=== PATIENT | male | born 1970 | race African-American/Black ===

== ENCOUNTER 2017-07-28 16:54 | Inpatient (IN) | payer OTHER ==
[2017-07-28] MEDS ORDERED: Amiodarone HCl 450 MG, Admixture Fee 1 EACH in Dextrose 5% in Water 250 ML IVPB SCH (17:30)
[2017-07-28] MEDS ORDERED: Magnesium 2 GM/NS 0.9% 100 ML 2 GM in Premix Bag 1 BAG IVPB ONE (17:30)
[2017-07-28 17:44] LABS: #Basophils 0.1 thou/uL (0.0-0.2); #Eosinphils 0.1 thou/uL (0.0-0.7); #Lymphocytes 2.1 thou/uL (1.20-3.40); #Monocytes 0.6 thou/uL (0.11-0.59); #Neutrophils 4.7 thou/uL (1.40-6.50); %Basophils 0.9 % (0.0-1.0); %Eosinophils 1.8 % (0.0-10.0); %Lymphocytes 27.3 % (21.0-51.0); %Monocytes 7.8 % (0.0-10.0); %Neutrophils 62.3 % (42.0-75.0); Hemoglobin 12.7 g/dL (14.0-18.0); Mean Corpuscular HGB CONC 31.2 g/dL (32.0-36.0); Mean Corpuscular Hemoglobin 26.7 pg (27.0-31.0); Mean Corpuscular Volume 85.7 fl (80.0-94.0); Mean Platelet Volume 7.2 fL (7.4-10.4); Platelet Count 262 thou/uL (130-400); RBC Distribution Width 14.5 % (11.5-14.5); Red Blood Cell (RBC) Count 4.75 mill/uL (4.70-6.10); White Blood Cell (WBC) Count 7.6 thou/uL (4.8-10.8)
[2017-07-28 17:50] LABS: INR-International Normal Ratio 1.1; Prothrombin Time 13.8 SEC (12.0-14.7)
[2017-07-28 17:51] LABS: PTT 32.2 SEC (22.9-36.1)
[2017-07-28 18:10] LABS: CKMB 2.5 ng/mL (0-6.6); Troponin I Less than 0.010 ng/mL (< 0.028)
[2017-07-28] MEDS ORDERED: Acetaminophen 325 MG TAB PO PRN ×2 (19:50→20:08)
[2017-07-28] MEDS ORDERED: Bisacodyl 5 MG TAB PO PRN (20:08)
[2017-07-28] MEDS ORDERED: Ondansetron HCl/PF 4 MG/2 ML Vial IVP PRN (20:08)
[2017-07-28] MEDS ORDERED: Acetaminophen 650 MG Suppository PR PRN (20:08)
[2017-07-28] MEDS ORDERED: Ondansetron ODT 4 MG TAB PO PRN (20:08)
[2017-07-28 20:56] LABS: Troponin I 0.017 ng/mL (< 0.028)
[2017-07-28] MEDS: Docusate 100 MG CAP PO SCH (21:36)
[2017-07-28] MEDS: Carvedilol 6.25 MG TAB PO SCH (21:36)
[2017-07-28] MEDS: Famotidine 20 MG TAB PO SCH (21:37)
[2017-07-28] MEDS: Atorvastatin Calcium 20 MG TAB PO SCH (21:37)
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
[2017-07-28 23:59] LABS: Troponin I 0.015 ng/mL (< 0.028)
[2017-07-29 05:00] LABS: #Eosinphils 0.1 thou/uL (0.0-0.7); #Lymphocytes 1.6 thou/uL (1.20-3.40); #Monocytes 0.4 thou/uL (0.11-0.59); #Neutrophils 3.9 thou/uL (1.40-6.50); %Basophils 0.1 % (0.0-1.0); %Eosinophils 1.7 % (0.0-10.0); %Lymphocytes 27.2 % (21.0-51.0); %Monocytes 6.4 % (0.0-10.0); %Neutrophils 64.6 % (42.0-75.0); Hemoglobin 11.8 g/dL (14.0-18.0); Mean Corpuscular HGB CONC 31.1 g/dL (32.0-36.0); Mean Corpuscular Hemoglobin 26.4 pg (27.0-31.0); Mean Corpuscular Volume 84.8 fl (80.0-94.0); Mean Platelet Volume 7.6 fL (7.4-10.4); Platelet Count 232 thou/uL (130-400); RBC Distribution Width 14.3 % (11.5-14.5); Red Blood Cell (RBC) Count 4.47 mill/uL (4.70-6.10)
[2017-07-29 05:10] LABS: Anion Gap 12 mmol/L (10-20); BUN (Urea Nitrogen) 11 mg/dL (8.9-20.6); Calc. Creatinine Clearance 157 mL/min (70-130); Calcium 8.6 mg/dL (7.8-10.44); Carbon Dioxide 21 mmol/L (22-29); Chloride 107 mmol/L (98-107); Estimated GFR-MDRD Greater than 90; Glucose 107 mg/dL (70-105); Potassium 3.9 mmol/L (3.5-5.1); Sodium 136 mmol/L (136-145)
[2017-07-29] MEDS: Amiodarone HCl 450 MG, Admixture Fee 1 EACH in Dextrose 5% in Water 250 ML IVPB SCH (05:50)
[2017-07-29] MEDS ORDERED: FLU VACC QS2017-18 36 mo. & older 0.5 ML SYRINGE IM ONE (09:00)
[2017-07-29 09:18] VITALS: BMI 36.5
[2017-07-29] MEDS: Enoxaparin Sodium 40 MG/0.4 ML SYRINGE SC SCH (09:33)
[2017-07-29] MEDS: Losartan 25 MG TAB PO SCH (09:34)
[2017-07-29] MEDS: Famotidine 20 MG TAB PO SCH ×2 (09:34→22:27)
[2017-07-29] MEDS: Docusate 100 MG CAP PO SCH ×2 (09:34→22:28)
[2017-07-29] MEDS: Carvedilol 6.25 MG TAB PO SCH ×2 (09:35→22:28)
[2017-07-29] MEDS: Amlodipine 5 MG TAB PO SCH (09:35)
--- NOTE | 2017-07-29 10:15 | PDOC.PN ---
- Subjective Encounter Start Date: 07/29/17 Encounter Start Time: 11:40 Subjective: Patient with no symptoms overnight. No more fluttering. No -: syncope. No dizzy or nausea. - Objective Resuscitation Status: Resuscitation Status FULL:Full Resuscitation MAR Reviewed: Yes Vital Signs & Weight: Vital Signs (12 hours) Temp Pulse Resp BP Pulse Ox 07/29/17 09:30 97.9 F 78 16 120/77 98 07/29/17 04:27 98.4 F 69 16 123/76 97 07/28/17 23:23 97.9 F 80 19 119/61 98 Weight Admit Weight 277 lb 6.4 oz Weight 277 lb 1.6 oz I&O: 07/28/17 07/29/17 07/30/17 06:59 06:59 06:59 Intake Total 1780 Output Total 925 Balance 855 Result Diagrams: 07/29/17 04:40 07/29/17 04:40 Phys Exam - Physical Examination Constitutional: NAD HEENT: moist MMs Neck: no JVD Respiratory: no wheezing, no rales, no rhonchi, clear to auscultation bilateral Cardiovascular: RRR, no significant murmur Gastrointestinal: soft, positive bowel sounds Musculoskeletal: no edema Neurological: non-focal, moves all 4 limbs Psychiatric: normal affect, A&O x 3 Dx/Plan (1) Paroxysmal ventricular tachycardia Code(s): I47.2 - VENTRICULAR TACHYCARDIA Status: Acute Comment: Resolved with amiodarone, Dr. Basurto following (2) Myocardiopathy Code(s): I42.9 - CARDIOMYOPATHY, UNSPECIFIED Status: Chronic Qualifiers: Cardiomyopathy type: unspecified Qualified Code(s): I42.9 - Cardiomyopathy , unspecified Comment: ECHO pending, BNP normal (3) Hypertension Code(s): I10 - ESSENTIAL (PRIMARY) HYPERTENSION Status: Chronic Qualifiers: Hypertension type: essential hypertension Qualified Code(s): I10 - Essential (primary) hypertension Comment: Resume home meds (4) Hyperlipidemia Code(s): E78.5 - HYPERLIPIDEMIA, UNSPECIFIED Status: Chronic Comment: Resume home med - Plan cont current plan of care, out of bed/ambulate, DVT proph w/lovenox, DVT proph w /SCDs * . - Discharge Day Encounter end time: 11:50
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
[2017-07-29] MEDS: Atorvastatin Calcium 20 MG TAB PO SCH (22:27)
[2017-07-30] MEDS: Enoxaparin Sodium 40 MG/0.4 ML SYRINGE SC SCH (09:29)
[2017-07-30] MEDS: Docusate 100 MG CAP PO SCH ×2 (09:29→20:33)
[2017-07-30] MEDS: Losartan 25 MG TAB PO SCH (09:29)
[2017-07-30] MEDS: Amlodipine 5 MG TAB PO SCH (09:30)
[2017-07-30] MEDS: Famotidine 20 MG TAB PO SCH ×2 (09:30→20:33)
[2017-07-30] MEDS: Carvedilol 6.25 MG TAB PO SCH ×2 (09:30→20:33)
--- NOTE | 2017-07-30 11:29 | PDOC.PN ---
- Subjective Encounter Start Date: 07/30/17 Encounter Start Time: 08:40 Pt seen for followup re: ventricular tachycardia. Denies chest pain, shortness of breath, fevers or chills. - Objective Resuscitation Status: Resuscitation Status FULL:Full Resuscitation Vital Signs & Weight: Vital Signs (12 hours) Temp Pulse Resp BP Pulse Ox 07/30/17 09:30 67 07/30/17 09:25 98.1 F 69 16 129/78 97 07/30/17 05:44 98.5 F 67 14 108/50 L 96 07/30/17 04:30 96 07/30/17 00:00 98.2 F 63 12 108/64 96 Weight Admit Weight 277 lb 6.4 oz Weight 275 lb 8 oz I&O: 07/29/17 07/30/17 07/31/17 06:59 06:59 06:59 Intake Total 1780 1535 Output Total 925 500 Balance 855 1035 Result Diagrams: 07/29/17 04:40 07/29/17 04:40 EKG Reviewed by me: Yes (Tele: NSR) Phys Exam - Physical Examination Obese HEENT: PERRLA, moist MMs, sclera anicteric, oral pharynx no lesions Neck: no nodes, no JVD, supple, full ROM Respiratory: no wheezing, no rales, no rhonchi, clear to auscultation bilateral Cardiovascular: RRR, no rub Gastrointestinal: soft, non-tender, positive bowel sounds Neurological: moves all 4 limbs Psychiatric: normal affect, A&O x 3 Dx/Plan (1) NSVT (nonsustained ventricular tachycardia) Code(s): I47.2 - VENTRICULAR TACHYCARDIA Status: Acute Comment: Cardiology following, awaiting EP consult (2) Hyperlipidemia Code(s): E78.5 - HYPERLIPIDEMIA, UNSPECIFIED Status: Chronic Comment: continue statin (3) Hypertension Code(s): I10 - ESSENTIAL (PRIMARY) HYPERTENSION Status: Chronic Qualifiers: Hypertension type: essential hypertension Qualified Code(s): I10 - Essential (primary) hypertension Comment: Monitor vital signs, titrate antihypertensives as needed (4) Myocardiopathy Code(s): I42.9 - CARDIOMYOPATHY, UNSPECIFIED Status: Chronic Qualifiers: Cardiomyopathy type: unspecified Qualified Code(s): I42.9 - Cardiomyopathy , unspecified Comment: continue losartan, carvedilol - Plan * . Review of Systems - Review of Systems Constitutional: negative: fever, chills, sweats, weakness, malaise Respiratory: negative: Cough, Dry, Shortness of Breath, Hemoptysis, SOB with Excertion, Pleuritic Pain, Sputum, Wheezing Cardiovascular: negative: chest pain, palpitations, orthopnea, paroxysmal nocturnal dyspnea, edema, light headedness Gastrointestinal: negative: Nausea, Vomiting, Abdominal Pain, Diarrhea, Constipation, Melena, Hematochezia Genitourinary: negative: Dysuria, Frequency, Incontinence, Hematuria, Retention - Medications/Allergies Allergies/Adverse Reactions: Allergies Allergy/AdvReac Type Severity Reaction Status Date / Time No Known Drug Allergies Allergy Verified 07/28/17 21:49 Medications: Current Medications Acetaminophen (Tylenol) 650 mg PO Q4H PRN PRN Reason: Headache/Fever or Pain Acetaminophen (Tylenol) 650 mg MI Q4H PRN PRN Reason: Headache/Fever or Pain Amlodipine Besylate (Norvasc) 5 mg PO DAILY [facility] Last Admin: 07/30/17 09:30 Dose: 5 mg Aspirin (Aspirin Chewable) 81 mg PO DAILY [facility] Last Admin: 07/30/17 09:30 Dose: 81 mg Atorvastatin Calcium (Lipitor) 20 mg PO HS [facility] Last Admin: 07/29/17 22:27 Dose: 20 mg Bisacodyl (Dulcolax) 10 mg PO DAILYPRN PRN PRN Reason: Constipation Carvedilol (Coreg) 6.25 mg PO BID [facility] Last Admin: 07/30/17 09:30 Dose: 6.25 mg Docusate Sodium (Colace) 100 mg PO BID [facility] Last Admin: 07/30/17 09:29 Dose: 100 mg Enoxaparin Sodium (Lovenox) 40 mg SC 0900 [facility] Last Admin: 07/30/17 09:29 Dose: 40 mg Famotidine (Pepcid) 20 mg PO BID [facility] Last Admin: 07/30/17 09:30 Dose: 20 mg Amiodarone HCl 450 mg/Miscellaneous Medication 1 each/ Dextrose/Water 259 mls @ 0 mls/hr IVPB INF [facility]; As Directed PRN Reason: Protocol Last Admin: 07/29/17 05:50 Dose: 259 mls Losartan Potassium (Cozaar) 100 mg PO DAILY [facility] Last Admin: 07/30/17 09:29 Dose: 100 mg Ondansetron HCl (Zofran Odt) 4 mg PO Q6H PRN PRN Reason: Nausea/Vomiting Ondansetron HCl (Zofran) 4 mg IVP Q6H PRN PRN Reason: Nausea/Vomiting
[2017-07-30] MEDS: Amiodarone HCl 450 MG, Admixture Fee 1 EACH in Dextrose 5% in Water 250 ML IVPB SCH (14:35)
[2017-07-30] MEDS: Atorvastatin Calcium 20 MG TAB PO SCH (20:33)
[2017-07-31] MEDS: Carvedilol 6.25 MG TAB PO SCH ×2 (12:03→20:39)
[2017-07-31] MEDS: Amlodipine 5 MG TAB PO SCH (12:04)
[2017-07-31] MEDS: Famotidine 20 MG TAB PO SCH ×2 (12:04→20:39)
[2017-07-31] MEDS: Enoxaparin Sodium 40 MG/0.4 ML SYRINGE SC SCH (12:05)
[2017-07-31] MEDS: Docusate 100 MG CAP PO SCH ×2 (12:05→20:39)
[2017-07-31] MEDS: Losartan 25 MG TAB PO SCH (12:05)
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
--- NOTE | 2017-07-31 13:34 | PDOC.PN ---
- Subjective Encounter Start Date: 07/31/17 Encounter Start Time: 12:20 Pt seen for followup re: NSVT. Denies any chest pain or shortness of breath. - Objective Resuscitation Status: Resuscitation Status FULL:Full Resuscitation MAR Reviewed: Yes Vital Signs & Weight: Vital Signs (12 hours) Temp Pulse Pulse Pulse Resp BP BP 07/31/17 12:04 68 07/31/17 12:03 153/89 H 07/31/17 11:03 64 64 149/76 H 07/31/17 08:00 97.9 F 68 18 07/31/17 05:02 98.4 F 69 14 BP BP Pulse Ox Pulse Ox Pulse Ox 07/31/17 12:04 07/31/17 12:03 07/31/17 11:03 125/78 100 96 07/31/17 08:00 153/89 H 94 L 07/31/17 05:02 95/51 L 96 Weight Admit Weight 277 lb 6.4 oz Weight 276 lb 6.4 oz I&O: 07/30/17 07/31/17 08/01/17 06:59 06:59 06:59 Intake Total 1535 918 Output Total 500 2750 Balance 1035 -1832 Result Diagrams: 07/29/17 04:40 07/29/17 04:40 EKG Reviewed by me: Yes (Tele: NSR) Phys Exam - Physical Examination Obese HEENT: PERRLA, moist MMs, sclera anicteric, oral pharynx no lesions Neck: no nodes, no JVD, supple, full ROM Respiratory: no wheezing, no rales, no rhonchi, clear to auscultation bilateral Cardiovascular: RRR, no rub Gastrointestinal: soft Neurological: moves all 4 limbs Psychiatric: normal affect, A&O x 3 Dx/Plan (1) NSVT (nonsustained ventricular tachycardia) Code(s): I47.2 - VENTRICULAR TACHYCARDIA Status: Acute Comment: ? due to stimulants in HydroxyCut; Coreg dose increased (2) Hyperlipidemia Code(s): E78.5 - HYPERLIPIDEMIA, UNSPECIFIED Status: Chronic Comment: continue statin (3) Hypertension Code(s): I10 - ESSENTIAL (PRIMARY) HYPERTENSION Status: Chronic Qualifiers: Hypertension type: essential hypertension Qualified Code(s): I10 - Essential (primary) hypertension Comment: Monitor vital signs (4) Myocardiopathy Code(s): I42.9 - CARDIOMYOPATHY, UNSPECIFIED Status: Chronic Qualifiers: Cardiomyopathy type: unspecified Qualified Code(s): I42.9 - Cardiomyopathy , unspecified Comment: continue losartan, carvedilol - Plan DVT proph w/lovenox * . Review of Systems - Review of Systems Respiratory: negative: Cough, Dry, Shortness of Breath, Hemoptysis, SOB with Excertion, Pleuritic Pain, Sputum, Wheezing Cardiovascular: negative: chest pain, palpitations, orthopnea, paroxysmal nocturnal dyspnea, edema, light headedness - Medications/Allergies Allergies/Adverse Reactions: Allergies Allergy/AdvReac Type Severity Reaction Status Date / Time No Known Drug Allergies Allergy Verified 07/28/17 21:49 Medications: Current Medications Acetaminophen (Tylenol) 650 mg PO Q4H PRN PRN Reason: Headache/Fever or Pain Acetaminophen (Tylenol) 650 mg [place] Q4H PRN PRN Reason: Headache/Fever or Pain Amlodipine Besylate (Norvasc) 5 mg PO DAILY [facility] Last Admin: 07/31/17 12:04 Dose: 5 mg Aspirin (Aspirin Chewable) 81 mg PO DAILY [facility] Last Admin: 07/31/17 12:04 Dose: 81 mg Atorvastatin Calcium (Lipitor) 20 mg PO HS [facility] Last Admin: 07/30/17 20:33 Dose: 20 mg Bisacodyl (Dulcolax) 10 mg PO DAILYPRN PRN PRN Reason: Constipation Carvedilol (Coreg) 6.25 mg PO BID [facility] Last Admin: 07/31/17 12:03 Dose: 6.25 mg Docusate Sodium (Colace) 100 mg PO BID [facility] Last Admin: 07/31/17 12:05 Dose: 100 mg Enoxaparin Sodium (Lovenox) 40 mg SC 0900 [facility] Last Admin: 07/31/17 12:05 Dose: 40 mg Famotidine (Pepcid) 20 mg PO BID [facility] Last Admin: 07/31/17 12:04 Dose: 20 mg Losartan Potassium (Cozaar) 100 mg PO DAILY [facility] Last Admin: 07/31/17 12:05 Dose: 100 mg Ondansetron HCl (Zofran Odt) 4 mg PO Q6H PRN PRN Reason: Nausea/Vomiting Ondansetron HCl (Zofran) 4 mg IVP Q6H PRN PRN Reason: Nausea/Vomiting
[2017-07-31] MEDS: Atorvastatin Calcium 20 MG TAB PO SCH (20:38)
[2017-08-01] MEDS: Losartan 25 MG TAB PO SCH (09:15)
[2017-08-01] MEDS: Famotidine 20 MG TAB PO SCH ×2 (09:15→20:27)
[2017-08-01] MEDS: Docusate 100 MG CAP PO SCH ×2 (09:16→20:28)
[2017-08-01] MEDS: Amlodipine 5 MG TAB PO SCH (09:16)
[2017-08-01] MEDS: Enoxaparin Sodium 40 MG/0.4 ML SYRINGE SC SCH (09:16)
[2017-08-01] MEDS: Carvedilol 6.25 MG TAB PO SCH ×3 (09:16→20:28)
--- NOTE | 2017-08-01 16:03 | PDOC.CTH ---
Cardiology Progress Note - Subjective EP progress note: Patient has done well overnight. No new cardiac complaints. Continues to have minor dizziness. No heart racing, syncope, or chest pain. - Objective Vital Signs Temp Pulse Pulse Pulse Resp BP BP 08/01/17 14:22 136/68 08/01/17 11:26 98.4 F 16 08/01/17 10:07 67 82 154/83 H 08/01/17 09:16 61 136/68 08/01/17 07:52 98.2 F 61 16 BP BP Pulse Ox Pulse Ox Pulse Ox 08/01/17 14:22 08/01/17 11:26 133/80 99 08/01/17 10:07 150/84 H 97 100 08/01/17 09:16 08/01/17 07:52 153/86 H 100 Admit Weight 277 lb 6.4 oz Weight 264 lb 12.8 oz 07/31/17 08/01/17 08/02/17 06:59 06:59 06:59 Intake Total 918 240 Output Total 2750 Balance -1832 240 - Physical Examination General/Neuro: alert & oriented x3, NAD Neck: carotid US brisk, no JVD present Lungs: CTA, unlabored respirations Heart: PMI normal, RRR Abdomen: no HSM, NT/ND - Telemetry Telemetry Rhythm: NSR - Labs Result Diagrams: 07/29/17 04:40 07/29/17 04:40 Troponin/CKMB CK-MB (CK-2) 2.5 ng/mL (0-6.6) 07/28/17 17:32 Troponin I 0.015 ng/mL (< 0.028) 07/28/17 23:29 - Assessment/Plan 1. NSVT- 8 beat run captured in ER. DC'd amiodarone yesterday. No recurrence. Will receive monitor as outpatient and follow up in clinic. Continue with beta malissa therapy, optimize Coreg as tolerated. 2. Cardiomyopathy- likely non ischemic per patient report. Recovered EF >40%. Per cardiology
--- NOTE | 2017-08-01 18:15 | PDOC.PN ---
- Subjective Encounter Start Date: 08/01/17 Encounter Start Time: 08:00 Pt seen for followup re: NSVT. Denies chest pain or dyspnea. - Objective Resuscitation Status: Resuscitation Status FULL:Full Resuscitation MAR Reviewed: Yes Vital Signs & Weight: Vital Signs (12 hours) Temp Pulse Pulse Pulse Resp BP BP 08/01/17 16:16 98.3 F 83 16 08/01/17 14:22 136/68 08/01/17 11:26 98.4 F 16 08/01/17 10:07 67 82 154/83 H 08/01/17 09:16 61 136/68 08/01/17 07:52 98.2 F 61 16 BP BP Pulse Ox Pulse Ox Pulse Ox 08/01/17 16:16 126/73 08/01/17 14:22 08/01/17 11:26 133/80 99 08/01/17 10:07 150/84 H 97 100 08/01/17 09:16 08/01/17 07:52 153/86 H 100 Weight Admit Weight 277 lb 6.4 oz Weight 264 lb 12.8 oz I&O: 07/31/17 08/01/17 08/02/17 06:59 06:59 06:59 Intake Total 918 840 Output Total 2750 Balance -1832 840 Result Diagrams: 07/29/17 04:40 07/29/17 04:40 EKG Reviewed by me: Yes (Tele: NSR) Phys Exam - Physical Examination Obese HEENT: PERRLA, moist MMs, sclera anicteric, oral pharynx no lesions Neck: no nodes, no JVD, supple, full ROM Respiratory: no wheezing, no rales, no rhonchi, clear to auscultation bilateral Cardiovascular: RRR, no rub Gastrointestinal: soft Neurological: moves all 4 limbs Psychiatric: normal affect, A&O x 3 Dx/Plan (1) NSVT (nonsustained ventricular tachycardia) Code(s): I47.2 - VENTRICULAR TACHYCARDIA Status: Acute Comment: ? due to stimulants in HydroxyCut; Coreg dose increased (2) Hyperlipidemia Code(s): E78.5 - HYPERLIPIDEMIA, UNSPECIFIED Status: Chronic Comment: continue statin (3) Hypertension Code(s): I10 - ESSENTIAL (PRIMARY) HYPERTENSION Status: Chronic Qualifiers: Hypertension type: essential hypertension Qualified Code(s): I10 - Essential (primary) hypertension Comment: Monitor vital signs (4) Myocardiopathy Code(s): I42.9 - CARDIOMYOPATHY, UNSPECIFIED Status: Chronic Qualifiers: Cardiomyopathy type: unspecified Qualified Code(s): I42.9 - Cardiomyopathy , unspecified Comment: continue losartan, carvedilol - Plan out of bed/ambulate * . Review of Systems - Review of Systems Constitutional: negative: fever, chills, sweats, weakness, malaise Respiratory: negative: Cough, Dry, Shortness of Breath, Hemoptysis, SOB with Excertion, Pleuritic Pain, Sputum, Wheezing Cardiovascular: negative: chest pain, palpitations, orthopnea, paroxysmal nocturnal dyspnea, edema, light headedness Gastrointestinal: negative: Nausea, Vomiting, Abdominal Pain, Diarrhea, Constipation, Melena, Hematochezia Genitourinary: negative: Dysuria, Frequency, Incontinence, Hematuria, Retention - Medications/Allergies Allergies/Adverse Reactions: Allergies Allergy/AdvReac Type Severity Reaction Status Date / Time No Known Drug Allergies Allergy Verified 07/28/17 21:49 Medications: Current Medications Acetaminophen (Tylenol) 650 mg PO Q4H PRN PRN Reason: Headache/Fever or Pain Last Admin: 08/01/17 16:19 Dose: 650 mg Acetaminophen (Tylenol) 650 mg [place] Q4H PRN PRN Reason: Headache/Fever or Pain Amlodipine Besylate (Norvasc) 5 mg PO DAILY [facility] Last Admin: 08/01/17 09:16 Dose: 5 mg Aspirin (Aspirin Chewable) 81 mg PO DAILY [facility] Last Admin: 08/01/17 09:16 Dose: 81 mg Atorvastatin Calcium (Lipitor) 20 mg PO HS [facility] Last Admin: 07/31/17 20:38 Dose: 20 mg Bisacodyl (Dulcolax) 10 mg PO DAILYPRN PRN PRN Reason: Constipation Carvedilol (Coreg) 6.25 mg PO TID [facility] Last Admin: 08/01/17 14:22 Dose: 6.25 mg Docusate Sodium (Colace) 100 mg PO BID [facility] Last Admin: 08/01/17 09:16 Dose: 100 mg Enoxaparin Sodium (Lovenox) 40 mg SC 0900 [facility] Last Admin: 08/01/17 09:16 Dose: 40 mg Famotidine (Pepcid) 20 mg PO BID [facility] Last Admin: 08/01/17 09:15 Dose: 20 mg Losartan Potassium (Cozaar) 100 mg PO DAILY [facility] Last Admin: 08/01/17 09:15 Dose: 100 mg Ondansetron HCl (Zofran Odt) 4 mg PO Q6H PRN PRN Reason: Nausea/Vomiting Ondansetron HCl (Zofran) 4 mg IVP Q6H PRN PRN Reason: Nausea/Vomiting
[2017-08-01] MEDS: Atorvastatin Calcium 20 MG TAB PO SCH (20:28)
[2017-08-02] MEDS: Carvedilol 6.25 MG TAB PO SCH ×2 (08:44→14:42)
[2017-08-02] MEDS: Enoxaparin Sodium 40 MG/0.4 ML SYRINGE SC SCH (08:44)
[2017-08-02] MEDS: Docusate 100 MG CAP PO SCH (08:44)
[2017-08-02] MEDS: Famotidine 20 MG TAB PO SCH (08:44)
[2017-08-02] MEDS: Amlodipine 5 MG TAB PO SCH (08:45)
[2017-08-02] MEDS: Losartan 25 MG TAB PO SCH (08:45)
[2017-08-02 11:52] VITALS: TEMP 98.7
--- NOTE | 2017-08-02 12:58 | DIS ---
DATE OF ADMISSION: 07/28/2017 DATE OF DISCHARGE: 08/02/2017 PRIMARY CARE PROVIDER: DAREK Morrissey DISCHARGE DIAGNOSES: 1. Nonsustained ventricular tachycardia. 2. Cardiomyopathy, likely nonischemic. CONDITION OF PATIENT ON THE DAY OF DISCHARGE: Stable. I assessed Mr. Camarena on the day of disch arge. He denies any chest pain or shortness of breath. Vital signs are stable. S1 and S2 are heard , regular. Lungs are clear to auscultation bilaterally. INVESTIGATIONS DURING THIS HOSPITALIZATION: A 2D echocardiogram on 07/29/2017, which showed left cassi tricular ejection fraction of 50%-55%. He also had a mildly dilated left atrium and mild mitral regu rgitation and [id number] tricuspid regurgitation. CONSULTATIONS DURING THIS HOSPITALIZATION: Cardiology, Dr. Basurto, and Electrophysiology, Dr. Maldonado . DISCHARGE MEDICATIONS: Carvedilol dose has been increased to 6.25 mg 3 times a day, Cozaar 100 mg da [place], Lipitor 20 mg daily, amlodipine 5 mg daily. HOSPITAL COURSE: Mr. Cruz is a pleasant 47-year-old gentleman, who was admitted to [facility] for nonsustained ventricular tachycardia on 07/28/2017. He was seen by Cardio logy and Electrophysiology services. He was initially started on amiodarone. This was subsequently discontinued and his carvedilol dose was increased. He most likely had arrhythmia from [id number] ter Hydroxycut. Electrophysiology Service will follow up with a 2-week monitor. He told me that he has enough carvedilol at home. He needed a prescription for losartan, which I am providing. Many thanks for allowing me to participate in your patient's care. Please feel free to contact me wi th any questions or concerns. During this hospitalization, he had triglycerides 151, cholesterol 110, LDL cholesterol 58, and HDL c holesterol 22. DISCHARGE DESTINATION: Home. TOTAL AMOUNT OF TIME SPENT COORDINATING THIS DISCHARGE: 33 minutes.
[2017-08-02 15:58] VITALS: BP 143/74
--- NOTE | 2017-08-03 09:06 | PRG ---
DATE OF SERVICE: 08/02/2017 SUBJECTIVE: Mr. Cruz is here for a followup. He has been doing well without signs of angina o r CHF or palpitations. OBJECTIVE: VITAL SIGNS: Blood pressure is 124/91, heart rate 60, temperature 98.7 degrees Fahrenheit, and respi rations 16. GENERAL: He is alert and oriented man with elevated BMI. NECK: Supple. Jugular veins not distended. CHEST: Coarse, no crackles. CARDIOVASCULAR: Heart sounds are regular to rate and rhythm. No murmur or gallop. ABDOMEN: Benign. Bowel sounds positive. EXTREMITIES: No clubbing or cyanosis. DATA BASE: Telemetry strips reveal sinus rhythm. No ventricular or atrial arrhythmias. ASSESSMENT AND PLAN: Mr. Cruz is a 47-year-old man with a history of 8 beat nonsustained VT in the ER. This is in the setting of , continued beta malissa therapy as tolerated. LVEF 4 0% of this but no definite indication for ICD . He is to have routine monitoring of his heart f ailure therapies and the LVEF and is advised in the future to return to our office if further ventric ular arrhythmias or LVEF worsening occurs.
--- NOTE | 2017-08-20 00:24 | EKG ---
Test Reason : PALPITATIONS Blood Pressure : / mmHG Vent. Rate : 083 BPM Atrial Rate : 083 BPM P-R Int : 164 ms QRS Dur : 124 ms QT Int : 422 ms P-R-T Axes : 068 -27 018 degrees QTc Int : 495 ms Normal sinus rhythm Right bundle branch block Abnormal ECG Confirmed by JUAN GIBSON ([id number]), general expeditor VICTOR MANUEL JUAREZ ([id number]) on 08/20/2017 12:24:18 AM Referred By: ARTHUR Confirmed By:JUAN GIBSON
== END 2017-08-02 15:53 | disposition home or self-care (01) | DRG 309 ==
LOC: ERS 16:54 → 2NO 17:50
PROVIDERS: ADMIT Emergency Medicine; ATTEND Emergency Medicine
DX: I47.2 Ventricular tachycardia (principal); I42.8 Other cardiomyopathies; I08.1 Rheumatic disorders of both mitral and tricuspid valves; I10 Essential (primary) hypertension; E66.9 Obesity, unspecified; Z68.36 Body mass index [BMI] 36.0-36.9, adult; F32.9 Major depressive disorder, single episode, unspecified; Z87.891 Personal history of nicotine dependence; F19.11 Other psychoactive substance abuse, in remission; E78.5 Hyperlipidemia, unspecified; Z79.82 Long term (current) use of aspirin; I45.10 Unspecified right bundle-branch block
CPT/HCPCS: 36415; 80048; 80061; 83735; 85025; 93005; 93306; 93798; 96365; J0282; J1650; J3475; J7070